=== PATIENT | female | born 1960 | race Caucasian/White ===

== ENCOUNTER 2023-09-20 09:36 | Outpatient (OUT) | payer MEDICARE, SELFPAY ==
--- NOTE | 2023-09-20 | XR_ITS ---
[address] [address] Patient Name: TYESHA HUNT MRN: [id number] date: 1960 Sex: F Assigned Patient Location: [facility] Current Patient Location: Accession/Order Number: [id number] Exam Date: 09/20/2023 09:40 Report Date: 09/21/2023 07:35 At the request of: CLEM MARTÍNEZ Procedure: XR ankle RT min 3V PROCEDURE: XR ankle RT min 3V, XR foot RT min 3V HISTORY: RIGHT ANKLE PAIN , right lateral foot pain , heel pain radiating into ankle, no known injury COMPARISON: None. FINDINGS: BONES:Mild degenerative change of the first metatarsophalangeal joint. Small calcaneal plantar spur and enthesopathic spurring at Achilles tendon insertion into the calcaneus. No fracture, dislocation, or bone lesion. Unremarkable ankle joint. SOFT TISSUES:No visible soft tissue swelling. EFFUSION:None visible. OTHER: Negative. XR/XR ankle RT min 3V IMPRESSION: 1. Minimal degenerative changes of the first metatarsophalangeal joint and small calcaneal degenerative enthesophytes. No specific findings to account for patient's symptoms. Electronically authenticated by: BUNNY JUAREZ Date: 09/21/2023 07:35
--- NOTE | 2023-09-20 | XR_ITS ---
[address] [address] Patient Name: TYESHA HUNT MRN: [id number] date: 1960 Sex: F Assigned Patient Location: [facility] Current Patient Location: Accession/Order Number: [id number] Exam Date: 09/20/2023 09:40 Report Date: 09/21/2023 07:35 At the request of: CLEM MARTÍNEZ Procedure: XR foot RT min 3V PROCEDURE: XR ankle RT min 3V, XR foot RT min 3V HISTORY: RIGHT ANKLE PAIN , right lateral foot pain , heel pain radiating into ankle, no known injury COMPARISON: None. FINDINGS: BONES:Mild degenerative change of the first metatarsophalangeal joint. Small calcaneal plantar spur and enthesopathic spurring at Achilles tendon insertion into the calcaneus. No fracture, dislocation, or bone lesion. Unremarkable ankle joint. SOFT TISSUES:No visible soft tissue swelling. EFFUSION:None visible. OTHER: Negative. XR/XR foot RT min 3V IMPRESSION: 1. Minimal degenerative changes of the first metatarsophalangeal joint and small calcaneal degenerative enthesophytes. No specific findings to account for patient's symptoms. Electronically authenticated by: BUNNY JUAREZ Date: 09/21/2023 07:35
== END 2023-09-20 09:37 | disposition home or self-care (01) ==
LOC: RAD 09:38
PROVIDERS: Family Provider Family Medicine; Visit Provider Physician Assistant
DX: M79.671 Pain in right foot (principal); M25.571 Pain in right ankle and joints of right foot
CPT/HCPCS: 73610; 73630